=== PATIENT | male | born 1960 | race African-American/Black ===

== ENCOUNTER 2020-11-26 11:18 | Emergency (ER) | payer MEDICARE, OTHER ==
[~2020-11-26] VITALS: Ht 182.9 cm; Wt 83.9 kg
[2020-11-26 11:27] VITALS: BP 127/77
[2020-11-26] MEDS ORDERED: KETOROLAC TROMETHAMINE INJ 30 MG/ML VIAL IM ONE (12:30)
[2020-11-26] MEDS ORDERED: DIAZEPAM 5 MG TABLET PO ONE (12:30)
[2020-11-26] MEDS ORDERED: KETOROLAC TROMETHAMINE 15 MG/ML VIAL ONE (13:13)
[2020-11-26] MEDS ORDERED: DIAZEPAM 5 MG TABLET ONE (13:13)
[2020-11-26] MEDS ORDERED: DIAZ5TAB PO (14:21)
--- NOTE | 2020-11-26 14:39 | NUR ---
Patient discharged to home in stable condition. Written and verbal after care instructions given. Patient verbalizes understanding of instruction.
== END 2020-11-26 14:40 | disposition home or self-care (01) ==
LOC: ER 11:18
DX: M62.830 Muscle spasm of back (principal); I10 Essential (primary) hypertension; Z96.652 Presence of left artificial knee joint; Z90.89 Acquired absence of other organs; Z98.890 Other specified postprocedural states; Z79.899 Other long term (current) drug therapy
CPT/HCPCS: 96372; 99283; J1885

== ENCOUNTER 2020-12-04 16:30 | Emergency (ER) | payer OTHER ==
[~2020-12-04] VITALS: Ht 188 cm; Wt 81.6 kg
[~2020-12-04 16:30] MED LIST: DIAZ5TAB PO
--- NOTE | 2020-12-04 16:45 | NUR ---
patient came in to the er c/o R knee pain while walking, denies any injury. On room air, breathing evenly and unlabored. Kept comfortable, will continue to monitor accordingly.
[2020-12-04] MEDS ORDERED: KETOROLAC TROMETHAMINE INJ 30 MG/ML VIAL ONE (17:27)
[2020-12-04] MEDS ORDERED: CYCLOBENZAPRINE 10 MG TABLET ONE (17:27)
[2020-12-04] MEDS ORDERED: DEXAMETHASONE SOD PHOSPHATE 10 MG/ML VIAL ONE (17:27)
[2020-12-04] MEDS ORDERED: KETOROLAC TROMETHAMINE INJ 60 MG/2 ML VIAL IM ONE (17:30)
[2020-12-04] MEDS ORDERED: DEXAMETHASONE SOD PHOSPHATE 4 MG/ML VIAL IM ONE (17:30)
[2020-12-04] MEDS ORDERED: CYCLOBENZAPRINE 10 MG TABLET PO ONE (17:30)
[2020-12-04] MEDS ORDERED: MORPHINE SULFATE INJ 2 MG/ML DISP.SYRIN IM ONE (18:30)
[2020-12-04] MEDS ORDERED: MORPHINE SULFATE INJ 2 MG/ML DISP.SYRIN ONE (18:33)
[2020-12-04] MEDS ORDERED: HYDR-3980 PO (18:39)
[2020-12-04 18:51] VITALS: BP 129/88
--- NOTE | 2020-12-04 18:52 | NUR ---
Patient discharged to home in stable condition. Written and verbal after care instructions given. Patient verbalizes understanding of instruction.
== END 2020-12-04 18:52 | disposition home or self-care (01) ==
LOC: ER 16:36
DX: M25.561 Pain in right knee (principal); M54.5 Low back pain; G89.29 Other chronic pain; I10 Essential (primary) hypertension; Z96.652 Presence of left artificial knee joint; Z90.89 Acquired absence of other organs; Z98.890 Other specified postprocedural states; Z79.899 Other long term (current) drug therapy
CPT/HCPCS: 73552; 73564; 96372 ×2; 99283; J1100; J1885; J2270

== ENCOUNTER 2020-12-15 05:17 | Emergency (ER) | payer OTHER, MEDICAID ==
[~2020-12-15] VITALS: Ht 182.9 cm; Wt 83.9 kg
[~2020-12-15 05:17] MED LIST changes: +HYDR-3980 PO
--- NOTE | 2020-12-15 05:50 | NUR ---
PT BIBRA C/O SHARP PAIN DOWN LEGS AND LOWER BACK CAUSING PT TO FALL. PT AAOX4 BREATHING EVENLY AND UNLABORED. PT DENIES KO. PT SKIN WARM, DRY, AND INTACT. PT ATTACHED TO MONITOR AND POX. PT GIVEN BLANKET AND CALL LIGHT WITHIN REACH.
--- NOTE | 2020-12-15 06:22 | NUR ---
AGUSTINA CHARLES TALKING TO DR. MOORE REGARDING PT ADMISSION.
--- NOTE | 2020-12-15 06:23 | NUR ---
PT ACCEPTED BY DR. MOORE AT [facility].
--- NOTE | 2020-12-15 06:23 | NUR ---
TEXTED DR. HI FOR MRI APPROVAL.
--- NOTE | 2020-12-15 06:40 | NUR ---
BLOOD OBTAINED AND SENT TO LAB
--- NOTE | 2020-12-15 06:41 | NUR ---
SPOKE TO DOMO FROM [facility] INFO PROVIDED REQUESTED. WILL FAX FACESHEET AND CLINICAL TO FAX , PHONE NUMBER .
--- NOTE | 2020-12-15 06:44 | NUR ---
MD VERBAL ORDER 4MG ZOFRAN AND 4MG MORPHINE
[2020-12-15 06:45] VITALS: BP 144/78
[2020-12-15] MEDS ORDERED: ONDANSETRON HCL/PF 4 MG/2 ML VIAL ONE (06:46)
[2020-12-15] MEDS ORDERED: MORPHINE SULFATE INJ 4 MG/ML DISP.SYRIN ONE ×2 (06:46→08:27)
[2020-12-15] MEDS: MORPHINE SULFATE INJ 2 MG/ML DISP.SYRIN IV ONE ×3 (06:50→10:06)
--- NOTE | 2020-12-15 06:57 | NUR ---
COVID SWAB HANDED TO LAB AND REQUESTED TO RUN IT STAT
[2020-12-15] MEDS ORDERED: DEXAMETHASONE SOD PHOSPHATE 10 MG/ML VIAL ONE (06:59)
[2020-12-15] MEDS: DEXAMETHASONE SOD PHOSPHATE 10 MG/ML VIAL IV ONE (07:00)
[2020-12-15 07:05] LABS: BASOPHILS # (AUTO) 0.1 /CMM (0.0-0.2); BASOPHILS % (AUTO) 0.3 % (0.0-2.0); EOSINOPHILS % (AUTO) 0.6 % (0.0-6.0); HEMATOCRIT 45 % (39-51); HEMOGLOBIN 14.6 g/dL (13.5-17.5); LYMPHOCYTES # (AUTO) 1.2 /CMM (0.8-4.8); LYMPHOCYTES % (AUTO) 7.6 % (20.0-44.0); MEAN CORPUSCULAR HGB CONC 33 g/dl (31.0-36.0); MEAN CORPUSCULAR VOLUME 93 fL (80-96); MONOCYTES % (AUTO) 6.1 % (2.0-12.0); NEUTROPHILS # (AUTO) 13.9 /CMM (1.8-8.9); NEUTROPHILS % (AUTO) 85.4 % (43.0-81.0); PLATELET COUNT (AUTO) 321 /CMM (150-450); WHITE BLOOD COUNT (AUTO) 16.3 K/uL (4.3-11.0)
--- NOTE | 2020-12-15 07:05 | NUR ---
GAVE REPORT TO KELLI YADAV FOR YO
--- NOTE | 2020-12-15 07:21 | NUR ---
LAB CALLED REGARDING NEGATIVE COVID RESULT.
[2020-12-15 07:27] LABS: CALCIUM, SERUM 10.1 mg/dL (8.5-10.1); POTASSIUM 3.8 mmol/L (3.5-5.1)
[2020-12-15 07:40] LABS: C-REACTIVE PROTEIN 4.1 mg/dL (0.0-0.9)
--- NOTE | 2020-12-15 07:45 | NUR ---
PATIENT WILL BE GOING TO [facility] 4411-1. NUMBER FOR REPORT. [phone] EXT [phone]. [facility] [address] EMMANUEL GARCIA.
--- NOTE | 2020-12-15 09:00 | NUR ---
REPORT GIVEN TO KELECHI PEREIRA.
[2020-12-15] MEDS ORDERED: MORPHINE SULFATE INJ 2 MG/ML DISP.SYRIN ONE (10:02)
--- NOTE | 2020-12-15 10:07 | NUR ---
PATIENT REPOSITIONED. NO DISTRESS NOTED.
--- NOTE | 2020-12-15 10:45 | NUR ---
ambulance eta 5-10 mins
--- NOTE | 2020-12-15 11:01 | NUR ---
report given to ems. patient transferred to [facility] in stable condition. images and paperworks provided.
[2020-12-18] MEDS ORDERED: ONDANSETRON HCL/PF - ER 4 MG/2 ML VIAL IV ONE (07:30)
== END 2020-12-15 11:05 | disposition short-term general hospital (02) ==
LOC: ER 05:20
DX: G95.20 Unspecified cord compression (principal); Z96.652 Presence of left artificial knee joint; E78.5 Hyperlipidemia, unspecified; I10 Essential (primary) hypertension; Z87.39 Personal history of other diseases of the musculoskeletal system and connective tissue; Z98.890 Other specified postprocedural states; Z20.822 Contact with and (suspected) exposure to COVID-19
CPT/HCPCS: 36415; 80048; 85025; 85652; 86140; 87426; 96374; 96375; 96376; 99291; 99292; C9803; J1100; J2270 ×3; J2405

== ENCOUNTER 2022-01-19 18:18 | Emergency (ER) | payer MEDICARE, OTHER ==
[~2022-01-19] VITALS: Ht 182.9 cm; Wt 72.6 kg
[2022-01-19 18:20] VITALS: BP 130/89
[2022-01-19] MEDS ORDERED: LACT10SO3 PO (18:41)
[2022-01-19] MEDS ORDERED: HYDR25SU33 RC (18:41)
--- NOTE | 2022-01-19 18:50 | NUR ---
Patient discharged to home in stable condition. Written and verbal after care instructions given. Patient verbalizes understanding of instruction.
== END 2022-01-19 18:51 | disposition home or self-care (01) ==
LOC: ER 18:30
DX: K64.8 Other hemorrhoids (principal); I10 Essential (primary) hypertension; E78.5 Hyperlipidemia, unspecified; Z90.89 Acquired absence of other organs; Z98.890 Other specified postprocedural states; Z79.899 Other long term (current) drug therapy